=== PATIENT | female | born 1955 | race Caucasian/White ===

== ENCOUNTER 2019-12-22 17:47 | Inpatient (IN) | payer MEDICARE ==
[~2019-12-22] VITALS: Ht 154.9 cm; Wt 69.9 kg
[~2019-12-22 17:47] MED LIST: ACTIVELLA 1 MG1 EACH PO; ATENOLOL50 MG PO; LEVOTHYROXINE75 MCG PO; TRIAMTERENE-HCTZ1 EA PO
[2019-12-22] MEDS ORDERED: MORPHINE SULFATE 2 MG/ML SYR 1ML IV ONE (18:15)
[2019-12-22] MEDS ORDERED: ONDANSETRON HCL INJ 2MG/ML 2ML 2 MG/ML VIAL IV ONE (18:15)
--- NOTE | 2019-12-22 18:25 | Emergency Department Note ---
History of Present Illnes History of Present Illness Chief Complaint: Abdominal Complaints History of Present Illness This is a 64 year old female PRESENTS WITH C/O ABD PAIN AND VOMITING THAT STARTED ABOUT 4 PM. PT HAD FOOT SURGERY 2 DAYS AGO. DENIES DIARRHEA, DENIES FEVER, PAIN IS CONSTANT BUT DOES WAX AND WAIN . Historian: Director Of Admissions/EMS Arrival Mode: [place] Additional Treatment TAILOR'S AIDE: n/a Project Manager Retail Required: No Onset (how long ago): hour(s) (2) Location: ABD Quality: PAIN Radiation: Reports non-radiation Severity: severe Onset quality: sudden Duration (how long): hour(s) (2) Timing of current episode: constant Progression: waxing and waning Chronicity: new Context: Reports recent surgery (FOOT SURGERY); Denies recent illness, Denies recent travel, Denies trauma/injury Relieving factors: none Exacerbating factors: none Associated symptoms: Reports nausea/vomiting Treatments prior to arrival: none Past Medical/Family History Physician Review I have reviewed the patient's past medical and family history. Any updates have been documented here. Past Medical History Recent Fever: No Clinical Suspicion of Infectio: No New/Unexplained Change in Ment: No Past Medical History: Hypertension, Hypothyroidism, Hyperlipedemia Past Surgical History: Appendectomy Other Surgery: left foot Social History Smoking Cessation: Never Smoker Alcohol Use: None Any Illegal Drug Use: No Family History Family history of heart diseas: No Other Last Tetanus: UNK Review of Systems Review of Systems Constitutional: Reports no symptoms EENTM: Reports no symptoms Cardiovascular: Reports no symptoms Respiratory: Reports no symptoms Gastrointestinal: Reports as per HPI Genitourinary: Reports no symptoms Musculoskeletal: Reports no symptoms Integumentary: Reports no symptoms Neurological: Reports no symptoms Psychological: Reports no symptoms Endocrine: Reports no symptoms Hematological/Lymphatic: Reports no symptoms Review of other systems: All other systems negative Physical Exam Related Data Allergies: Coded Allergies: Levofloxacin (Verified Allergy, 05/29/12) Triage Vital Signs Vital Signs Date Time Temp Pulse Resp B/P (MAP) Pulse Ox O2 Delivery O2 Flow Rate FiO2 12/22/19 18:05 97.6 50 16 177/82 100 Room Air Vital signs reviewed: Yes Physical Exam CONSTITUTIONAL Constitutional: Present well-developed, Present well-nourished, Present distressed (MILD) HENT HENT: Present normocephalic, Present atraumatic, Present oropharynx clear/moist, Present nose normal HENT L/R: Present left ext ear normal, Present right ext ear normal EYES Eyes: Reports PERRL, Reports conjunctivae normal NECK Neck: Present ROM normal PULMONARY Pulmonary: Present effort normal, Present breath sounds normal CARDIOVASCULAR Cardiovascular: Present regular rhythm, Present heart sounds normal, Present capillary refill normal, Present bradycardia (RATE 50) GASTROINTESTINAL Abdominal: Present soft, Present bowel sounds normal, Present tender (MODERATE TENDERENESS BILATERAL LOWER ABD AND PERIUMBILICAL) GENITOURINARY Genitourinary: Present exam deferred SKIN Skin: Present warm, Present dry MUSCULOSKELETAL Musculoskeletal: Present ROM normal, Present other (LEFT LOWER EXTREMITY IN ORTHO BOOT, SURGICAL DRESSING IN PLACE) NEUROLOGICAL Neurological: Present alert, Present oriented x 3, Present no gross motor or sensory deficits PSYCHOLOGICAL Psychological: Present mood/affect normal, Present judgement normal Results Laboratory Laboratory Laboratory Tests Test 12/22/19 18:20 White Blood Count 9.87 x10e3/uL (4.8-10.8) Red Blood Count 4.36 x10e6/uL (3.6-5.1) Hemoglobin 13.3 g/dL (12.0-16.0) Hematocrit 41.7 % (34.2-44.1) Mean Corpuscular Volume 95.6 fL (81-99) Mean Corpuscular Hemoglobin 30.5 pg (28-32) Mean Corpuscular Hemoglobin Concent 31.9 g/dL (31-35) Red Cell Distribution Width 13.8 % (11.7-14.4) Platelet Count 279 x10e3/uL (140-360) Neutrophils (%) (Auto) 79.0 % (38.7-80.0) Lymphocytes (%) (Auto) 15.9 % (18.0-39.1) Monocytes (%) (Auto) 0.9 % (4.4-11.3) Eosinophils (%) (Auto) 3.3 % (0.0-6.0) Basophils (%) (Auto) 0.6 % (0.0-1.0) Neutrophils # (Auto) 7.8 (2.1-6.9) Lymphocytes # (Auto) 1.6 (1.0-3.2) Monocytes # (Auto) 0.1 (0.2-0.8) Eosinophils # (Auto) 0.3 (0.0-0.4) Basophils # (Auto) 0.1 (0.0-0.1) Absolute Immature Granulocyte (auto 0.03 x10e3/uL (0-0.1) Sodium Level 142 mmol/L (136-145) Potassium Level 2.9 mmol/L (3.5-5.1) Chloride Level 103 mmol/L (98-107) Carbon Dioxide Level 27 mmol/L (22-29) Anion Gap 14.9 mmol/L (8-16) Blood Urea Nitrogen 19 mg/dL (7-26) Creatinine 1.06 mg/dL (0.57-1.11) Estimat Glomerular Filtration Rate 52 ML/MIN (60-) BUN/Creatinine Ratio 18 (6-25) Glucose Level 141 mg/dL (74-118) Calcium Level 10.0 mg/dL (8.4-10.2) Total Bilirubin 0.3 mg/dL (0.2-1.2) Aspartate Amino Transf (AST/SGOT) 25 IU/L (5-34) Alanine Aminotransferase (ALT/SGPT) 18 IU/L (0-55) Alkaline Phosphatase 75 IU/L (40-150) Creatine Kinase 139 IU/L (29-168) Creatine Kinase MB 2.00 ng/mL (0-5.0) Troponin I < 0.001 ng/mL (0-0.300) Total Protein 7.1 g/dL (6.5-8.1) Albumin 4.0 g/dL (3.5-5.0) Globulin 3.1 g/dL (2.3-3.5) Albumin/Globulin Ratio 1.3 (0.8-2.0) Amylase Level 172 U/L (25-125) Lipase 28 U/L (8-78) Lab results reviewed: Yes Imaging Imaging results reviewed: Yes Impressions Procedure: [id number] CT/CT ABDOMEN/PELVIS W Exam Date: 12/22/19 Exam Time: 1929 REPORT STATUS: Signed EXAM: CT Abdomen and Pelvis WITH contrast INDICATION: ^ABD PAIN ^Y COMPARISON: CT abdomen/pelvis 05/29/2012 TECHNIQUE: Abdomen and pelvis were scanned utilizing a multidetector helical scanner from the lung base to the pubic symphysis after administration of IV contrast. Coronal and sagittal reformations were obtained. Routine protocol was performed. Scan was performed when during portal venous phase. IV CONTRAST: 100 mL of Isovue 370 ORAL CONTRAST: None COMPLICATIONS: None RADIATION DOSE: Total DLP: 402.35 mGy*cm Estimated effective dose: (DLP x 0.015 x size factor) mSv CTDIvol has been reviewed. It is below the limits set by the Radiation Protocol Committee (RPC). Dose modulation, iterative reconstruction, and/or weight based adjustment of the mA/kV was utilized to reduce the radiation dose to as low as reasonably achievable. FINDINGS: LINES and TUBES: None. LOWER THORAX: Subsegmental atelectasis in the dependent lung bases. Visualized portions of inferior mediastinum are unremarkable. HEPATOBILIARY: Liver is normal in size and attenuation. No focal hepatic lesions. No biliary ductal dilation. GALLBLADDER: No radio-opaque stones or sludge. No wall thickening. SPLEEN: No splenomegaly. PANCREAS: No focal masses or ductal dilatation. ADRENALS: No adrenal nodules KIDNEYS/URETERS: Kidneys enhance symmetrically. No hydronephrosis. No cystic or solid mass lesions. No stones. GI TRACT: Diffusely dilated fluid-filled colon extending from the cecum to the sigmoid colon with associated mild mucosal enhancement. Colon gradually tapers to normal caliber with formed stool in the rectum and colon. Distal ileum is also fluid-filled however not significantly dilated. Remaining portions of small bowel are completely decompressed. Appendix is not definitively visualized. PELVIC ORGANS/BLADDER: Uterus is unremarkable. Bilateral adnexa are unremarkable. Urinary bladder is unremarkable. LYMPH NODES: No lymphadenopathy. VESSELS: Unremarkable. PERITONEUM / RETROPERITONEUM: No free air or fluid. BONES: No acute osseous abnormality. Moderate multilevel degenerative changes of the lumbar spine. SOFT TISSUES: Unremarkable. IMPRESSION: 1. Diffusely dilated and fluid-filled colon with mild mucosal enhancement, concerning for colitis. Moderate amount of formed stool within the sigmoid colon and rectum. 2. Small bowel is diffusely decompressed. 3. Appendix is not definitively visualized. Signed by: Dr. Solitario Blanco M.D. on 12/22/2019 8:35 PM Dictated By: SOLITARIO BLANCO MD 34 Transcribed By: BAN on 12/22/192034 COPY TO: ELISSA SEBASTIAN MD~ Procedures 12 Lead ECG Interpretation ECG Interpretation : ECG: ECG 1 Project Manager Retail: Interpreted by ED physician Date: Dec 22, 2019 Time: 18:50 Rhythm: sinus bradycardia Rate: bradycardia BPM: 53 QRS axis: normal ST segments normal: Yes T waves normal: No (NONSECIFIC CHANGES) Other findings: no other findings Clinical Impression: abnormal ECG Assessment & Plan Medical Decision Making MDM PT WITH ABD PAIN CBC, CMP, AMYLASE, LIPASE, CT ABD/PELVIS, EKG, CARDIAC ENZYMES ORDERED TO EVAL FOR PANCREATITIS, ELEVATED LFT'S,UTI, ILEUS, SBO, COLITIS, DIVERTICULITIS MORPHINE 4 MG IV ORDERED ZOFRAN 4 MG IV ORDERED I SPOKE WITH DR BANUELOS AND DR Marybel HOOVER, ADMIT INPATIENT Assessment & Plan Final Impression: (1) Colitis (2) Hypokalemia Depart Disposition: ADMITTED Last Vital Signs Date Time Temp Pulse Resp B/P (MAP) Pulse Ox O2 Delivery O2 Flow Rate FiO2 12/22/19 18:05 97.6 50 16 177/82 100 Room Air Home Meds Reported Medications Estradiol/Noreth Ac (ACTIVELLA 1 MG-0.5 MG TABLET) 1 Each Tablet, 1 TAB PO DAILY 05/29/12 Levothyroxine Sodium (LEVOTHYROXINE SODIUM) 75 Mcg Tablet, 75 MCG PO DAILY 05/29/12 Atenolol (ATENOLOL) 50 Mg Tablet, 25 MG PO BID 05/29/12 Triamterene/Hctz (TRIAMTERENE-HCTZ 37.5-25 MG TB) 1 Ea Tab, 1 TAB PO DAILY 05/29/12 Medications in the ED Morphine Sulfate 4 mg NOW STAT IV ; Start 12/22/19 at 18:15; Stop 12/22/19 at 18:16; Status UNV Ondansetron HCl 4 mg NOW STAT IV ; Start 12/22/19 at 18:15; Stop 12/22/19 at 18:16; Status UNV Sodium Chloride 1,000 ml @ 100 mls/hr Q10H IV ; Start 12/22/19 at 18:15; Stop 01/21/20 at 18:14; Status UNV ELISSA SEBASTIAN MD Dec 22, 2019 18:25
[2019-12-22 18:36] LABS: BASOPHILS # (AUTO) 0.1 (0.0-0.1); BASOPHILS % 0.6 % (0.0-1.0); EOSINOPHILS # (AUTO) 0.3 (0.0-0.4); EOSINOPHILS % 3.3 % (0.0-6.0); HEMATOCRIT 41.7 % (34.2-44.1); HEMOGLOBIN 13.3 g/dL (12.0-16.0); LYMPHOCYTES # (AUTO) 1.6 (1.0-3.2); LYMPHOCYTES % 15.9 % (18.0-39.1); MEAN CORPUSCULAR HEMOGLOBIN 30.5 pg (28-32); MEAN CORPUSCULAR HGB CONC 31.9 g/dL (31-35); MEAN CORPUSCULAR VOLUME 95.6 fL (81-99); MONOCYTES # (AUTO) 0.1 (0.2-0.8); MONOCYTES % 0.9 % (4.4-11.3); NEUTROPHILS # (AUTO) 7.8 (2.1-6.9); PLATELET COUNT 279 x10e3/uL (140-360); RED BLOOD COUNT 4.36 x10e6/uL (3.6-5.1); RED CELL DISTRIBUTION WIDTH 13.8 % (11.7-14.4)
[2019-12-22] MEDS: SODIUM CHLORIDE 0.9% 1000ML 1,000 ML IV SCH (18:45)
[2019-12-22 19:03] LABS: ALANINE AMINOTRANSFERASE 18 IU/L (0-55); ALBUMIN/GLOBULIN RATIO 1.3 (0.8-2.0); ALKALINE PHOSPHATASE 75 IU/L (40-150); ANION GAP 14.9 mmol/L (8-16); BLOOD UREA NITROGEN 19 mg/dL (7-26); BUN/CREATININE RATIO 18 (6-25); CARBON DIOXIDE 27 mmol/L (22-29); CHLORIDE 103 mmol/L (98-107); CREATINE KINASE 139 IU/L (29-168); CREATININE, SERUM 1.06 mg/dL (0.57-1.11); EST GLOMERULAR FILTRATION RATE 52 ML/MIN (60-); GLUCOSE 141 mg/dL (74-118); SODIUM 142 mmol/L (136-145)
[2019-12-22 19:04] LABS: AMYLASE 172 U/L (25-125); LIPASE 28 U/L (8-78)
--- NOTE | 2019-12-22 19:10 | NUR ---
ekg done and family at side
[2019-12-22 19:16] LABS: POTASSIUM 2.9 mmol/L (3.5-5.1)
[2019-12-22] MEDS ORDERED: KCL 20MEQ/.9 SOD CHL 1,000 ML IV ONE (19:30)
[2019-12-22] MEDS ORDERED: HYDROMORPHONE 1MG/1ML INJ IV STA ×2 (20:18→20:20)
--- NOTE | 2019-12-22 20:38 | Diagnostic Imaging Report ---
EXAM: CT Abdomen and Pelvis WITH contrast INDICATION: ^ABD PAIN ^Y COMPARISON: CT abdomen/pelvis 05/29/2012 TECHNIQUE: Abdomen and pelvis were scanned utilizing a multidetector helical scanner from the lung base to the pubic symphysis after administration of IV contrast. Coronal and sagittal reformations were obtained. Routine protocol was performed. Scan was performed when during portal venous phase. IV CONTRAST: 100 mL of Isovue 370 ORAL CONTRAST: None COMPLICATIONS: None RADIATION DOSE: Total DLP: 402.35 mGy*cm Estimated effective dose: (DLP x 0.015 x size factor) mSv CTDIvol has been reviewed. It is below the limits set by the Radiation Protocol Committee (RPC). Dose modulation, iterative reconstruction, and/or weight based adjustment of the mA/kV was utilized to reduce the radiation dose to as low as reasonably achievable. FINDINGS: LINES and TUBES: None. LOWER THORAX: Subsegmental atelectasis in the dependent lung bases. Visualized portions of inferior mediastinum are unremarkable. HEPATOBILIARY: Liver is normal in size and attenuation. No focal hepatic lesions. No biliary ductal dilation. GALLBLADDER: No radio-opaque stones or sludge. No wall thickening. SPLEEN: No splenomegaly. PANCREAS: No focal masses or ductal dilatation. ADRENALS: No adrenal nodules KIDNEYS/URETERS: Kidneys enhance symmetrically. No hydronephrosis. No cystic or solid mass lesions. No stones. GI TRACT: Diffusely dilated fluid-filled colon extending from the cecum to the sigmoid colon with associated mild mucosal enhancement. Colon gradually tapers to normal caliber with formed stool in the rectum and colon. Distal ileum is also fluid-filled however not significantly dilated. Remaining portions of small bowel are completely decompressed. Appendix is not definitively visualized. PELVIC ORGANS/BLADDER: Uterus is unremarkable. Bilateral adnexa are unremarkable. Urinary bladder is unremarkable. LYMPH NODES: No lymphadenopathy. VESSELS: Unremarkable. PERITONEUM / RETROPERITONEUM: No free air or fluid. BONES: No acute osseous abnormality. Moderate multilevel degenerative changes of the lumbar spine. SOFT TISSUES: Unremarkable. IMPRESSION: 1. Diffusely dilated and fluid-filled colon with mild mucosal enhancement, concerning for colitis. Moderate amount of formed stool within the sigmoid colon and rectum. 2. Small bowel is diffusely decompressed. 3. Appendix is not definitively visualized. Signed by: Dr. Kvng Blanco M.D. on 12/22/2019 8:35 PM
[2019-12-22] MEDS ORDERED: SODIUM CHLORIDE 0.9% 50ML 50 ML ONE (20:41)
[2019-12-22] MEDS ORDERED: IOPAMIDOL 370 MG/ML 200 ML INFUS..BTL INJ ONE (20:41)
[2019-12-22] MEDS ORDERED: CEFOXITIN 1GM/0.9% NS 50ML ML IV SCH (22:00)
[2019-12-22] MEDS ORDERED: CEFOXITIN 1GM/0.9% NS 50ML 50 ML IV SCH (22:00)
[2019-12-22] MEDS ORDERED: SIMVASTATIN40 MG PO (22:47)
[2019-12-22 22:50] LABS: BILIRUBIN,URINE NEGATIVE (NEGATIVE); CLARITY,URINE CLEAR (CLEAR); COLOR,URINE YELLOW (YELLOW); KETONES,URINE NEGATIVE (NEGATIVE); LEUKOCYTE ESTERASE ,URINE NEGATIVE (NEGATIVE); NITRITE,URINE NEGATIVE (NEGATIVE); PROTEIN,URINE DIPSTICK NEGATIVE (NEGATIVE); URINE UROBILINOGEN 0.2 mg/dL (0.2 - 1)
[2019-12-22] MEDS ORDERED: HYDROCHLOROTH12.5 MG PO (22:55)
[2019-12-22] MEDS ORDERED: LISINOPRIL10 MG PO (22:55)
[2019-12-22 22:58] LABS: BACTERIA,URINE FEW /HPF; EPITHELIAL CELLS,URINE MODERATE /LPF; RBC,URINE 0-5 /HPF (0-5); WBC,URINE (MAN) 0-5 /HPF (0-5)
[2019-12-22 23:06] VITALS: BP 158/88
[2019-12-22 23:26] VITALS: BP 158/88
[2019-12-22 23:29] VITALS: BP 158/88
[2019-12-22] MEDS: METRONIDAZOLE 500MG/NS 100ML IV SCH (23:43)
[2019-12-23] VITALS (7 sets, daily range): BP systolic 116–142; BP diastolic 69–80
[2019-12-23] MEDS ORDERED: BISACODYL 10 MG SUPP PR ONE
[2019-12-23] MEDS: HYDROMORPHONE 1MG/1ML INJ IV PRN ×5 (00:40→23:48)
[2019-12-23] MEDS: ONDANSETRON HCL INJ 2MG/ML 2ML 2 MG/ML VIAL IV PRN ×6 (00:40→23:48)
[2019-12-23] MEDS: SODIUM CHLORIDE 0.9% 1000ML 1,000 ML IV SCH ×3 (01:22→23:49)
[2019-12-23] MEDS ORDERED: SOD PHOSPHATE/SOD BIPHOSPHATE ENEMA 132 ML BTL PR ONE (01:30)
--- NOTE | 2019-12-23 02:54 | NUR ---
Pt had 3 large BMs after anema.
[2019-12-23] MEDS ORDERED: POTASSIUM CHLORIDE 20 MEQ TAB CR PO ONE ×2 (03:15→04:20)
[2019-12-23] MEDS: METRONIDAZOLE 500MG/NS 100ML IV SCH ×3 (05:21→19:54)
[2019-12-23 06:19] LABS: BASOPHILS % 0.3 % (0.0-1.0); HEMATOCRIT 46.5 % (34.2-44.1); HEMOGLOBIN 14.6 g/dL (12.0-16.0); LYMPHOCYTES # (AUTO) 0.2 (1.0-3.2); LYMPHOCYTES % 1.8 % (18.0-39.1); MEAN CORPUSCULAR HEMOGLOBIN 30.2 pg (28-32); MEAN CORPUSCULAR HGB CONC 31.4 g/dL (31-35); MEAN CORPUSCULAR VOLUME 96.3 fL (81-99); MONOCYTES # (AUTO) 0.5 (0.2-0.8); NEUTROPHILS # (AUTO) 9.4 (2.1-6.9); NEUTROPHILS % 92.8 % (38.7-80.0); PLATELET COUNT 272 x10e3/uL (140-360); RED BLOOD COUNT 4.83 x10e6/uL (3.6-5.1); RED CELL DISTRIBUTION WIDTH 14.2 % (11.7-14.4)
[2019-12-23 06:39] LABS: ALANINE AMINOTRANSFERASE 22 IU/L (0-55); ALBUMIN 3.3 g/dL (3.5-5.0); ALBUMIN/GLOBULIN RATIO 1.1 (0.8-2.0); ALKALINE PHOSPHATASE 90 IU/L (40-150); ANION GAP 14.6 mmol/L (8-16); BLOOD UREA NITROGEN 20 mg/dL (7-26); BUN/CREATININE RATIO 22 (6-25); CARBON DIOXIDE 23 mmol/L (22-29); CHLORIDE 110 mmol/L (98-107); CREATININE, SERUM 0.92 mg/dL (0.57-1.11); EST GLOMERULAR FILTRATION RATE > 60 ML/MIN (60-); GLUCOSE 180 mg/dL (74-118); POTASSIUM 3.6 mmol/L (3.5-5.1); SODIUM 144 mmol/L (136-145)
--- NOTE | 2019-12-23 07:30 | NUR ---
RECEIVED PATIENT IN BED. RESPIRATION EVEN AND BREATHING UNLABORED. TELE APPLIED. NO C/O PAIN VERBALIZED AT THIS TIME. CALL LIGHT WITHIN REACH. WILL CONTINUE TO MONITOR.
[2019-12-23] MEDS: CEFOXITIN 1GM/0.9% NS 50ML 50 ML IV SCH ×3 (08:29→23:48)
[2019-12-23 09:01] LABS: BAND NEUTROPHILS % (MANUAL) 1 %; LYMPHOCYTES % (MANUAL) 2 % (19-48); MONOCYTES % (MANUAL) 4 % (3.4-9.0); NEUTROPHILS % (MANUAL) 93 % (40-74); PLATELET ESTIMATE ADEQUATE; PLATELET MORPHOLOGY COMMENT NORMAL; RBC MORPHOLOGY COMMENT NORMAL
--- NOTE | 2019-12-23 10:59 | NUR ---
H&P cc: abdominal pain HPI: 64yoF, PCP , developed abdominal pain, presented to the ED, imaging showed colitis. IV antibiotics started and GI consulted. PMH: HTN, HLD, Hypothyroidism PShx: appendectomy, nasal, meniscus, left heel spur Allergies; see emr FH/SH; ; no cigs meds; see emr ROS: no f/c/s/ORELLANA/cp/SOB//vision changes/skin rash/leg pain v/s revd PE tired appearing anicteric ns1s2 mod bs soft nd; TENDER LOWER ABDOMEn LEFT LEG BOOT skin dry n. affect a&ox3; casper labs/meds revd A/P: 64yoF Acute colitis- antibiotics Constipation-enema; bowel regimen. HypoK- replace and recheck Hypothyroidism- use IV while NPO HTN- hold med HLD- hold med Prop; scd; IV PPI DIspo: GI eval; LOIS BANUELOS MD, PHD.
[2019-12-23 11:24] LABS: CHOL/HDL RATIO 2.1 (3.0-3.6)
[2019-12-23] MEDS ORDERED: LIDOCAINE HCL 2% LOCAL INJ 5 ML SDV VIAL INJ ONE (12:55)
[2019-12-23] MEDS ORDERED: PROPOFOL IV EMULSION 10 MG/ML 20 ML VIAL ONE (12:55)
[2019-12-23] MEDS ORDERED: MIDAZOLAM HCL 2 MG/2 ML VIAL ONE (13:42)
[2019-12-23] MEDS ORDERED: FENTANYL CITRATE/PF 100MCG/2 ML INJ ONE (13:42)
[2019-12-23] MEDS ORDERED: CITRATE OF MAGNESIA 300ML BOTTLE PO NR ×2 (15:45→16:15)
[2019-12-23] MEDS: FAMOTIDINE 20 MG/2 ML VIAL IV SCH (16:16)
[2019-12-23] MEDS ORDERED: ONDANSETRON HCL INJ 2MG/ML 2ML 2 MG/ML VIAL IV NR (16:51)
[2019-12-23] MEDS ORDERED: DOCUSATE SODIUM 100 MG CAP PO SCH (17:00)
--- NOTE | 2019-12-23 18:29 | NUR ---
PATIENT OFF OF THE UNIT BY STRETCHER AT 1628 TO OR. PT IN STABLE CONDITION. TELE APPLIED
--- NOTE | 2019-12-23 19:47 | NUR ---
rc'd patient from OR.
--- NOTE | 2019-12-23 19:54 | NUR ---
BEDSIDE SHIFT REPORT GIVEN TO ONCOMING NURSE. PATIENT OFF OF UNIT FOR COLONOSCOPY AT THIS TIME. TELE APPLIED.
--- NOTE | 2019-12-23 20:10 | NUR ---
new consult called to dr teresa.
--- NOTE | 2019-12-23 20:12 | Operative Report ---
DATE OF PROCEDURE: 12/23/2019 SURGEON: Hugo Dhillon MD PROCEDURE: Colonoscopy with biopsies. INDICATION FOR COLONOSCOPY: Abdominal pain, fecal impaction, abnormal CT scan of abdomen. MEDICATIONS: The patient was done under MAC, please see anesthesiologist's note. PROCEDURE IN DETAIL: With the patient in left lateral decubitus position, a flexible fiberoptic Olympus colonoscope was inserted into the rectum with ease and advanced all the way to the distal ascending colon. The scope was then withdrawn slowly. Mucosa overlying the distal half of the transverse colon was diffusely ulcerated along with the mucosa overlying the descending and the proximal half of the sigmoid colon. Random biopsies were obtained. The rest of the sigmoid colon was spared as well as the ascending colon and the proximal half of the transverse colon. The rectum was ulcerated, but most likely this is due to pressure necrosis from the patient's fecal impaction. The scope was then retroflexed into the distal rectum. Small internal hemorrhoids were noted, none of which was actively bleeding. The scope was then straightened out, it was subsequently withdrawn after securing an adequate stool specimen that was sent for the appropriate stool studies. The patient tolerated the procedure well. IMPRESSION: 1. Colonoscopy to distal ascending colon. Colon diffusely ulcerated, primarily involving distal half of transverse, descending colon and proximal sigmoid colon. Biopsies were obtained. There was sparing of the ascending and the proximal half of the transverse colon. 2. 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 3. Internal hemorrhoids, none actively bleeding. PLAN: Follow up histology. Follow up stool studies. Continue IV antibiotics. We will need a repeat colonoscopy in three months to document healing. Hugo Dhillon MD [facility] [place] /[id number] cc: Philip Beaver MD
--- NOTE | 2019-12-23 20:19 | NUR ---
small amount of bright red blood at anus, cleaned patient will continue to monitor s/p colonoscopy.
--- NOTE | 2019-12-23 20:21 | NUR ---
spoke to dr teresa, no new orders.
[2019-12-23] MEDS ORDERED: METOCLOPRAMIDE HCL 10 MG/2ML VIAL IV ONE (23:30)
[2019-12-24] VITALS (8 sets, daily range): BP systolic 123–184; BP diastolic 57–89
[2019-12-24] MEDS: METRONIDAZOLE 500MG/NS 100ML IV SCH ×4 (00:30→17:45)
[2019-12-24] MEDS: METOCLOPRAMIDE HCL 10 MG/2ML VIAL IV SCH ×3 (05:46→17:42)
--- NOTE | 2019-12-24 07:00 | NUR ---
PATIENT IS AWAKE, ALERT, AND IN STABLE CONDITION WITH NO S/S OF RESPIRATORY DISTRESS. PATIENT DENIES PAIN AT THIS TIME. TELEMETRY APPLIED. CALL LIGHT IS WITHIN REACH, PATIENT INSTRUCTED TO CALL FOR ASSISTANCE NEEDED.
[2019-12-24 07:14] LABS: WBC,FECAL (FECAL LACTOFERRIN) POSITIVE (NEGATIVE)
--- NOTE | 2019-12-24 07:17 | NUR ---
IM- progress note O/N see below ROS: no f/c/s/ORELLANA/cp/SOB//vision changes/skin rash/leg pain v/s revd PE tired appearing anicteric ns1s2 mod bs soft nd; TENDER LOWER ABDOMEn LEFT LEG BOOT skin dry n. affect a&ox3; casper labs/meds revd A/P: 64yoF Acute colitis- antibiotics Constipation-enema; bowel regimen. HypoK- replace and recheck Hypothyroidism- use IV while NPO HTN- hold med HLD- hold med Prop; scd; IV PPI DIspo: GI eval; 12-24-19 Ischemic Colitis- continue flagyl/ceftin; monitor; control BP with amlodipine, which may act to relax vascular smooth muscles in inferior mesenteric artery. LOIS BANUELOS MD, PHD.
[2019-12-24] MEDS: CEFOXITIN 1GM/0.9% NS 50ML 50 ML IV SCH ×3 (07:42→23:45)
[2019-12-24] MEDS: FAMOTIDINE 20 MG/2 ML VIAL IV SCH ×2 (07:42→17:42)
[2019-12-24] MEDS: AMLODIPINE BESYLATE 10 MG TAB PO SCH ×2 (07:42→09:00)
[2019-12-24] MEDS ORDERED: SENNOSIDES 8.6 MG TAB PO SCH (09:00)
[2019-12-24] MEDS: LEVOTHYROXINE SODIUM 100 MCG/VIAL IV SCH (10:41)
--- NOTE | 2019-12-24 10:50 | Consultation ---
DATE OF CONSULTATION: 12/24/2019 CHIEF COMPLAINT: Abdominal pain. HISTORY OF PRESENT ILLNESS: The patient is a 64-year-old female with a 3-day history of cramping abdominal pain, intermittent nausea, and vomiting. The patient also has a bloody diarrhea. She had left foot surgery on Wednesday without a complication. The patient had one previous episode of colitis a year ago, which was treated non operatively. PAST MEDICAL HISTORY: Significant for hypertension, hyperlipidemia, hypothyroidism. PAST SURGICAL HISTORY: Positive for appendectomy, knee and foot surgery and nasal surgery. ALLERGIES: SHE HAS ALLERGIC REACTION TO LEVAQUIN. SOCIAL HABITS: She does not smoke, but drink. REVIEW OF SYSTEMS: No chest pain, shortness of breath, cough, or fevers. PHYSICAL EXAMINATION: VITAL SIGNS: Stable, afebrile. She is awake, alert, in moderate discomfort. HEENT: Sclerae nonicteric. NECK: Supple. LUNGS: Clear. HEART: Regular rate and rhythm. ABDOMEN: Soft with some mild guarding in the left lower abdomen without any rebound. There is hygj-sa-wyzrymba distention of the abdomen. EXTREMITIES: No cyanosis, edema. LABORATORY DATA: White cell count 10, hemoglobin of 14, creatinine 0.9. CT scan showing inflammation of the mucosa of the colon without obstruction. Colonoscopy revealed ulcerative lesions in the distal transverse colon to the rectum. ASSESSMENT: Abdominal pain and diarrhea, inpatient with history of colitis. Colitis seemed to be involving the distal half of the colon. Some improvement since admission. PLAN: Continue IV resuscitation. We will keep n.p.o. until resolution of symptoms. We will follow. Dino Tamayo MD [facility]/MODL /[id number]
[2019-12-24 14:32] LABS: C DIFFICILE TOXIN A&B AMP PROB NEGATIVE (NEGATIVE)
[2019-12-24] MEDS: SODIUM CHLORIDE 0.9% 1000ML 1,000 ML IV SCH ×2 (19:00→19:07)
--- NOTE | 2019-12-24 19:13 | NUR ---
PATIENT IS IN STABLE CONDITION WITH NO S/S OF RESPIRATORY DISTRESS. NO PAIN VOICED. TELEMETRY APPLIED. IV FLUIDS INFUSING. DIAPER APPLIED. CALL LIGHT IS WITHIN REACH, PATIENT INSTRUCTED TO CALL FOR ASSISTANCE NEEDED. REPORT GIVEN TO ONCOMING NURSE.
--- NOTE | 2019-12-24 19:24 | NUR ---
CALL PLACED OUT TO DR. CATALAN REGARDING PATIENT'S DIET AND HER RECEIVING AN OKAY FOR ICE CHIPS PER DR. HOOVER. AWAITING CALLBACK.
[2019-12-25] VITALS (7 sets, daily range): BP systolic 122–168; BP diastolic 70–94
[2019-12-25] MEDS: METRONIDAZOLE 500MG/NS 100ML IV SCH ×4 (00:34→18:00)
[2019-12-25] MEDS: METOCLOPRAMIDE HCL 10 MG/2ML VIAL IV SCH ×5 (00:34→23:50)
[2019-12-25] MEDS: SODIUM CHLORIDE 0.9% 1000ML 1,000 ML IV SCH ×2 (05:34→23:50)
[2019-12-25 05:48] LABS: BASOPHILS # (AUTO) 0.1 (0.0-0.1); BASOPHILS % 0.6 % (0.0-1.0); EOSINOPHILS # (AUTO) 0.2 (0.0-0.4); EOSINOPHILS % 1.6 % (0.0-6.0); HEMATOCRIT 33.7 % (34.2-44.1); HEMOGLOBIN 11.1 g/dL (12.0-16.0); LYMPHOCYTES # (AUTO) 0.9 (1.0-3.2); LYMPHOCYTES % 8.9 % (18.0-39.1); MEAN CORPUSCULAR HEMOGLOBIN 31.6 pg (28-32); MEAN CORPUSCULAR HGB CONC 32.9 g/dL (31-35); MONOCYTES # (AUTO) 0.8 (0.2-0.8); MONOCYTES % 7.7 % (4.4-11.3); NEUTROPHILS % 80.8 % (38.7-80.0); PLATELET COUNT 195 x10e3/uL (140-360); RED BLOOD COUNT 3.51 x10e6/uL (3.6-5.1); RED CELL DISTRIBUTION WIDTH 14.2 % (11.7-14.4)
[2019-12-25 06:22] LABS: ALANINE AMINOTRANSFERASE 17 IU/L (0-55); ALBUMIN 2.3 g/dL (3.5-5.0); ALBUMIN/GLOBULIN RATIO 0.9 (0.8-2.0); ALKALINE PHOSPHATASE 61 IU/L (40-150); ANION GAP 11.3 mmol/L (8-16); BLOOD UREA NITROGEN 14 mg/dL (7-26); BUN/CREATININE RATIO 21 (6-25); CALCIUM 7.9 mg/dL (8.4-10.2); CARBON DIOXIDE 20 mmol/L (22-29); CHLORIDE 113 mmol/L (98-107); CREATININE, SERUM 0.67 mg/dL (0.57-1.11); EST GLOMERULAR FILTRATION RATE > 60 ML/MIN (60-); GLUCOSE 73 mg/dL (74-118); POTASSIUM 3.3 mmol/L (3.5-5.1); SODIUM 141 mmol/L (136-145)
--- NOTE | 2019-12-25 06:58 | NUR ---
IM- progress note O/N see below ROS: no f/c/s/ORELLANA/cp/SOB//vision changes/skin rash/leg pain v/s revd PE tired appearing anicteric ns1s2 mod bs soft nd; TENDER LOWER ABDOMEn LEFT LEG BOOT skin dry n. affect a&ox3; casper labs/meds revd A/P: 64yoF Acute colitis- antibiotics Constipation-enema; bowel regimen. HypoK- replace and recheck Hypothyroidism- use IV while NPO HTN- hold med HLD- hold med Prop; scd; IV PPI DIspo: GI eval; 12-24-19 Ischemic Colitis- continue flagyl/ceftin; monitor; control BP with amlodipine, which may act to relax vascular smooth muscles in inferior mesenteric artery. 11-2 Hypokalemia- Replace K; getting ice chips only. LOIS BANUELOS MD, PHD.
[2019-12-25] MEDS ORDERED: POTASSIUM CHLORIDE 20 MEQ TAB CR PO ONE (07:30)
[2019-12-25] MEDS ORDERED: POTASSIUM CHLORIDE 20MEQ/100ML 100 ML IV ONE (08:00)
[2019-12-25] MEDS ORDERED: METOPROLOL TARTRATE INJ 1 MG/ML VIAL IV PRN (08:00)
[2019-12-25] MEDS: FAMOTIDINE 20 MG/2 ML VIAL IV SCH ×2 (09:30→17:00)
[2019-12-25] MEDS: LEVOTHYROXINE SODIUM 100 MCG/VIAL IV SCH (09:30)
[2019-12-25] MEDS: CEFOXITIN 1GM/0.9% NS 50ML 50 ML IV SCH ×3 (09:30→23:50)
--- NOTE | 2019-12-25 15:00 | NUR ---
3rd call to Dr. Beaver to notify him patient has been unable to tolerate IV potassium and has poor IV access. Orders received for midline placement.
[2019-12-26] VITALS (8 sets, daily range): BP systolic 109–153; BP diastolic 61–83
[2019-12-26] MEDS: METRONIDAZOLE 500MG/NS 100ML IV SCH ×4 (00:35→17:38)
[2019-12-26] MEDS: SODIUM CHLORIDE 0.9% 1000ML 1,000 ML IV SCH ×3 (02:15→23:37)
[2019-12-26] MEDS: METOCLOPRAMIDE HCL 10 MG/2ML VIAL IV SCH ×4 (05:32→23:37)
--- NOTE | 2019-12-26 06:16 | NUR ---
IM- progress note O/N see below ROS: no f/c/s/ORELLANA/cp/SOB//vision changes/skin rash/leg pain v/s revd PE tired appearing anicteric ns1s2 mod bs soft nd; TENDER LOWER ABDOMEn LEFT LEG BOOT skin dry n. affect a&ox3; casper labs/meds revd A/P: 64yoF Acute colitis- antibiotics Constipation-enema; bowel regimen. HypoK- replace and recheck Hypothyroidism- use IV while NPO HTN- hold med HLD- hold med Prop; scd; IV PPI DIspo: GI eval; 12-24-19 Ischemic Colitis- continue flagyl/ceftin; monitor; control BP with amlodipine, which may act to relax vascular smooth muscles in inferior mesenteric artery. 11-2 Hypokalemia- Replace K; getting ice chips only. 11-3 check electrolytes LOIS BANUELOS MD, PHD.
[2019-12-26 07:22] LABS: ANION GAP 11.3 mmol/L (8-16); BLOOD UREA NITROGEN 6 mg/dL (7-26); BUN/CREATININE RATIO 9 (6-25); CALCIUM 7.9 mg/dL (8.4-10.2); CARBON DIOXIDE 23 mmol/L (22-29); CHLORIDE 109 mmol/L (98-107); CREATININE, SERUM 0.65 mg/dL (0.57-1.11); EST GLOMERULAR FILTRATION RATE > 60 ML/MIN (60-); GLUCOSE 87 mg/dL (74-118); MAGNESIUM 1.7 MG/DL (1.3-2.1); PHOSPHORUS 1.1 MG/DL (2.3-4.7); POTASSIUM 3.3 mmol/L (3.5-5.1); SODIUM 140 mmol/L (136-145)
[2019-12-26] MEDS: LEVOTHYROXINE SODIUM 100 MCG/VIAL IV SCH (08:29)
[2019-12-26] MEDS: CEFOXITIN 1GM/0.9% NS 50ML 50 ML IV SCH ×3 (08:29→23:37)
[2019-12-26] MEDS: FAMOTIDINE 20 MG/2 ML VIAL IV SCH ×2 (08:29→17:38)
--- NOTE | 2019-12-26 09:22 | Diagnostic Imaging Report ---
OR Fluoroscopy: IMPRESSION: Fluoroscopy service provided in the OR. Interpretation not requested. Signed by: Anthony Abdalla MD on 12/26/2019 9:18 AM
[2019-12-26] MEDS: ONDANSETRON HCL INJ 2MG/ML 2ML 2 MG/ML VIAL IV PRN (10:30)
[2019-12-26] MEDS ORDERED: DIPHENOXYLATE/ATROPINE TAB PO ONE (12:15)
[2019-12-27] VITALS: BP 109/57
[2019-12-27] MEDS: METRONIDAZOLE 500MG/NS 100ML IV SCH ×3 (00:30→12:00)
[2019-12-27] MEDS ORDERED: POTASSIUM CHLORIDE 20 MEQ TAB CR PO STA (01:11)
[2019-12-27] MEDS ORDERED: POTASSIUM CHLORIDE 20 MEQ TAB CR PO ONE (03:00)
[2019-12-27 04:00] VITALS: BP 127/69
[2019-12-27] MEDS: METOCLOPRAMIDE HCL 10 MG/2ML VIAL IV SCH ×2 (05:54→12:00)
[2019-12-27 06:51] LABS: ANION GAP 12.6 mmol/L (8-16); BLOOD UREA NITROGEN < 5 mg/dL (7-26); CALCIUM 8.3 mg/dL (8.4-10.2); CARBON DIOXIDE 22 mmol/L (22-29); CHLORIDE 109 mmol/L (98-107); CREATININE, SERUM 0.62 mg/dL (0.57-1.11); EST GLOMERULAR FILTRATION RATE > 60 ML/MIN (60-); GLUCOSE 107 mg/dL (74-118); POTASSIUM 3.6 mmol/L (3.5-5.1); SODIUM 140 mmol/L (136-145)
[2019-12-27 06:53] LABS: BUN/CREATININE RATIO 8 (6-25)
--- NOTE | 2019-12-27 07:10 | NUR ---
RCD PT AT BED PT IS ALERT AND ORIENTED PT RESTING ON BED IV PATENT BED LOW AND LOCKED CALL LIGHT IN REACH
[2019-12-27] MEDS: CEFOXITIN 1GM/0.9% NS 50ML 50 ML IV SCH (07:30)
[2019-12-27 07:31] VITALS: BP 156/72
[2019-12-27] MEDS: SODIUM CHLORIDE 0.9% 1000ML 1,000 ML IV SCH (08:15)
[2019-12-27 08:42] VITALS: BP 156/72
[2019-12-27] MEDS: FAMOTIDINE 20 MG/2 ML VIAL IV SCH (09:00)
[2019-12-27] MEDS: LEVOTHYROXINE SODIUM 100 MCG/VIAL IV SCH (09:00)
--- NOTE | 2019-12-27 09:13 | NUR ---
D/C summary Principal Dx: Acute colitis- antibiotics Constipation-enema; bowel regimen. HypoK- replace and recheck Secondary Dx: Hypothyroidism- use IV while NPO HTN- hold med HLD- hold med Prop; scd; IV PPI DIspo: GI eval; 12-24-19 Ischemic Colitis- continue flagyl/ceftin; monitor; control BP with amlodipine, which may act to relax vascular smooth muscles in inferior mesenteric artery. 11-2 Hypokalemia- Replace K; getting ice chips only. -3 check electrolytes -4 cont care; diet per surgery. d/c home stable f/u pcp 2 days and [facility] 1 week d/c>35mins LOIS BANUELOS MD, PHD.
[2019-12-27] MEDS ORDERED: FLAGYL250 MG PO (10:01)
[2019-12-27] MEDS ORDERED: CEFUROXIME250 MG PO (10:01)
--- NOTE | 2019-12-27 10:05 | NUR ---
Pt unavailable at this time. Will follow up as able. HEMA BOGGS Washing Machine Mechanic Spiritual Care Department O: [phone]
[2019-12-27] MEDS ORDERED: PEPCID20 MG PO (10:27)
--- NOTE | 2019-12-27 10:57 | NUR ---
EDUCATED ABOUT IMM, SIGNED, FILED IN CHART, WITH COPY LEFT WITH FAMILY AT BEDSIDE.
[2019-12-27 11:01] VITALS: BP 138/70
--- NOTE | 2019-12-27 13:00 | NUR ---
PAGED AND NOTIFIED DR BANUELOS THE PT TOLERATING LUNCH GOT THE PERMISSION TO SEND TO HOME
--- NOTE | 2019-12-27 13:45 | NUR ---
DC MIDLINE BY ORDER NO SIGNS OF ANY BLEEDING NOTED
--- NOTE | 2019-12-27 14:12 | NUR ---
PT WENT HOME IN SAFE CONDITION WITH HER DAUGHTER NO SIGNS OF ANY BLEEDING ON THE MIDLINE SITE
--- OUTSIDE RECORDS SUMMARY | 2019-12-28 18:14 | XMS REPORT | Continuity of Care Document ---
Author Author [facility] t Organization [facility] Address [address] [place] [address] Phone Unavailable Care Team Providers Care Ux Developer Name Role Phone LOIS BANUELOS Attphys Unavailable LOIS BANUELOS Admphys Unavailable Problems Condition Name Condition Details Condition Category Status Onset Date Resolution Date Last Treatment Date Treating Clinician Comments Source Hypothyroidism Hypothyroidism Problem Active [facility] Hyperlipidemia Hyperlipidemia Problem Active [facility] Hypertensive disorder Hypertensive Disorder Problem Active [facility] Allergies, Adverse Reactions, Alerts Allergy Name Allergy Type Status Severity Reaction(s) Onset Date Inacti ve Date Treating Clinician Comments Source Levaquin Allergy to substance Active [facility] Social History Smoking Status Start Date Stop Date Source Never Smoker [facility] ractice Medications Ordered Medication Name Filled Medication Name Start Date Stop Da te Current Medication? Ordering Clinician Indication Dosage Frequency Signature (SIG) Comments Components Source ibuprofen 800 mg tablet Take 1 tablet ev rebeca 6-8 hours by oral route as needed for 30 days. ibuprofen 800 mg tablet Take 1 tablet ev rebeca 6-8 hours by oral route as needed for 30 days. No 1 Q7H i buprofen 800 mg tablet Take 1 tablet every 6-8 hours by oral route as needed for 30 days. [facility] lisinopril 10 mg-hydrochlorothiazide 12. 5 mg tablet Take 1 tablet(s) every day by oral route. lisinopril 10 mg-hydrochlorothiazide 12. 5 mg tablet Take 1 tablet(s) every day by oral route. No lisinopril 10 mg- hydrochlorothiazide 12.5 mg tablet Take 1 tablet(s) every day by oral route. [facility] lorazepam 1 mg tablet Take 1 tablet every day by oral route as needed. lorazepam 1 mg tablet Take 1 tablet every day by oral route as needed. No lorazepam 1 mg tablet Take 1 tablet every day by oral route as needed. [facility] simvastatin 40 mg tablet TAKE 1 TABLET DAILY simvastat in 40 mg tablet TAKE 1 TABLET DAILY No simvastatin 40 mg tablet TAKE 1 TABLET DAILY [facility] Synthroid 50 mcg tablet TAKE 1 TABLET BY MOUTH EVERY DAY Synthroid 50 mcg tablet TAKE 1 TABLET BY MOUTH EVERY DAY No Synthroid 50 mcg tablet TAKE 1 TABLET BY MOUTH EVERY DAY [facility] Vital Signs Vital Name Observation Time Observation Value Comments Source BP Diastolic 2019-10-09 00:00:00 71 mm[Hg] [facility] Height 2019-10-09 00:00:00 60.25 [in_i] [facility] BMI (Body Mass Index) 2019-10-09 00:00:00 28.5 kg/m2 [facility] BP Systolic 2019-10-09 00:00:00 153 mm[Hg] [facility] Body Weight 2019-10-09 00:00:00 147.4 [lb_av] [facility] Height 2019-09-22 00:00:00 60.25 [in_i] [facility] Height 2019-09-13 00:00:00 60.25 [in_i] [facility] BP Diastolic 2019-09-07 00:00:00 90 mm[Hg] [facility] Height 2019-09-07 00:00:00 60.25 [in_i] [facility] BMI (Body Mass Index) 2019-09-07 00:00:00 29.6 kg/m2 [facility] BP Systolic 2019-09-07 00:00:00 144 mm[Hg] [facility] Body Weight 2019-09-07 00:00:00 153 [lb_av] [facility] BP Diastolic 2019-01-02 00:00:00 101 mm[Hg] [facility] Height 2019-01-02 00:00:00 60.25 [in_i] [facility] BMI (Body Mass Index) 2019-01-02 00:00:00 29.7 kg/m2 [facility] BP Systolic 2019-01-02 00:00:00 141 mm[Hg] [facility] Body Weight 2019-01-02 00:00:00 153.4 [lb_av] [facility] BP Diastolic 2018-07-28 00:00:00 70 mm[Hg] [facility] Height 2018-07-28 00:00:00 60.25 [in_i] [facility] BMI (Body Mass Index) 2018-07-28 00:00:00 29 kg/m2 [facility] BP Systolic 2018-07-28 00:00:00 128 mm[Hg] [facility] Body Weight 2018-07-28 00:00:00 149.8 [lb_av] [facility] Procedures Procedure Date / Time Performed Performing Clinician [facility] e Appendectomy 1961-02-22 00:00:00 [facility] Encounters Start Date/Time End Date/Time Encounter Type [facility] Encounter ID Source 2019-10-09 00:00:00 2019-10-09 00:00:00 Jessica Mena MD: [address], [address], [place] [address], Ph[address] [facility] ([facility]) [id number] [facility] e 2019-09-22 00:00:00 2019-09-22 00:00:00 Feroz Shen MD: [address], [address], [place] [address], Ph. [facility] ([facility]) [id number] [facility] 2019-09-13 00:00:00 2019-09-13 00:00:00 Feroz Shen MD: [address], [address], [place] [address], Ph. [facility] ([facility]) [id number] [facility] 2019-09-07 00:00:00 2019-09-07 00:00:00 Pantera Underwood DO: [address], [address], [place] [address], Ph. [facility] ([facility]) [id number] [facility] 2019-03-01 00:00:00 2019-03-01 00:00:00 Ary Woods MD: [address] [place] [address], Ph. [facility] - [facility] [id number] [facility] 2019-01-02 00:00:00 2019-01-02 00:00:00 Feroz Shen MD: [address] [place] [address], Ph. [facility] [id number] [facility] 2018-07-28 00:00:00 2018-07-28 00:00:00 Feroz Shen MD: [address] [place] [address], Ph. [facility] [id number] [facility] 2018-07-26 00:00:00 2018-07-26 00:00:00 Feroz Shen MD: [address] [place] [address], Ph. [facility] [id number] [facility] Results Test Description Test Time Test Comments Results Result Comments Source [facility] 2019-12-26 09:18:00 [facility] : 1955 Sex: F [place] [id number] Patient Name: BREANNA MENDOZA MR #: [id number] : 1955 Age/Sex: 64/F Req #: [id number] Adm Physician: LOIS BANUELOS MD Ordered by: LOIS BANUELOS MD Report #: [id number] Location: MED/SURG2 Room/Bed: [facility] Procedure: [id number] IR/MIDLINE PLACEMENT Exam Date: Exam Time: REPORT STATUS: Signed OR Fluoroscopy: IMPRESSION: Fluoroscopy service provided in the OR. Interpretation not requested. Signed by: Anthony Diaz MD on 12/26/2019 9:18 AM Dictated By: ANTHONY DIAZ MD 7 Transcribed By: BAN on 12/26/19917 COPY TO: LOIS BANUELOS MD CT ABDOMEN/PELVIS W 2019-12-22 20:14:00 [facility] : 1955 Sex: F [place] [id number] Patient Name: BREANNA MENDOZA MR #: [id number] : 1955 Age/Sex: 64/F Req #: [id number] Adm Physician: Ordered by: ELISSA SEBASTIAN MD Report #: [id number] Location: Room/Bed: Procedure: [id number] CT/CT ABDOMEN/PELVIS W Exam Date: 12/22/19 Exam Time: 1930 REPORT STATUS: Signed EXAM: CT Abdomen and Pelvis WITH contrast INDICATION: ABD PAIN Y COMPARISON: CT abdomen/pelvis 05/29/2012 TECHNIQUE: Abdomen and pelvis were scanned utilizing a multidetector helical scanner from the lung base to the pubic symphysis after administration of IV contrast. Coronal and sagittal reformations were obtained. Routine protocol was performed. Scan was performed when during portal venous phase. IV CONTRAST: 100 mL of Isovue 370 ORAL CONTRAST: None COMPLICATIONS: None RADIATION DOSE: Total DLP: 402.35 mGy*cm Estimated effective dose: (DLP x 0.015 x size factor) mSv CTDIvol has been reviewed. It is below the limits set by the Radiation Protocol Committee (RPC). Dose modulation, iterative reconstruction, and/or weight based adjustment of the mA/kV was utilized to reduce the radiation dose to as low as reasonably achievable. FINDINGS: LINES and TUBES: None. LOWER THORAX: Subsegmental atelectasis in the dependent lung bases. Visu alized portions of inferior mediastinum are unremarkable. HEPATOBILIARY: Liver is normal in size and attenuation. No focal hepatic lesions. No biliary ductal dilation. GALLBLADDER: No radio-opaque stones or sludge. No wall thickening. SPLEEN: No splenomegaly. PANCREAS: No focal masses or ductal dilatation. ADRENALS: No adrenal nodules KIDNEYS/URETERS: Kidneys enhance symmetrically. No hydronephrosis. No cystic or solid mass lesions. No stones. GI TRACT: Diffusely dilated fluid-filled colon extending from the cecum to the sigmoid colon with associated mild mucosal enhancement. Colon gradually tapers to normal caliber with formed stool in the rectum and colon. Distal ileum is also fluid-filled however not significantly dilated. Remaining portions of small bowel are completely decompressed. Appendix is not definitively visualized. PELVIC ORGANS/BLADDER: Uterus is unremarkable. Bilateral adnexa are unremarkable. Urinary bladder is unremarkable. LYMPH NODES: No lymphadenopathy. VESSELS: Unremarkable. PERITONEUM / RETROPERITONEUM: No free air or fluid. BONES: No acute osseous abnormality. Moderate multilevel degenerative changes of the lumbar spine. SOFT TISSUES: Unremarkable. IMPRESSION: 1. Diffusely dilated and fluid-filled colon with mild mucosal enhancement, concerning for colitis. Moderate amount of formed stool within the sigmoid colon and rectum. 2. Small bowel is diffusely decompressed. 3. Appendix is not definitively visualized. Signed by: Dr. Solitario kang M.D. on 12/22/2019 8:35 PM Dictated By: SOLITARIO GIRON MD 34 Transcribed By: BAN on 12/22/192034 COPY TO: ELISSA SEBASTIAN MD CBC W Auto Differential panel - Blood 2019-09-08 08:27:00 Test Item WBC (test code = WBC) 6.64 x10*3/?L 3.98-10.04 RBC (test code = RBC) 4.37 10*12/L 3.93-5.22 hemoglobin (test code = hemoglobin) 13.30 g/dL 11.20-15.70 hematocrit (test code = hematocrit) 43.0 % 34.1-44.9 MCV (test code = MCV) 98.4 fL 80.0-100.0 MCH (test code = MCH) 30.4 pg 25.6-32.2 MCHC (test code = MCHC) 30.9 g/dL 32.2-35.5 L RDW-SD (test code = RDW-SD) 50.1 fL 36.4-46.3 H platelet count (test code = platelet count) 276.0 k/uL 182.0-369. 0 MPV (test code = MPV) 11.0 fL 7.5-11.5 neut% (test code = neut%) 67.6 % 34.0-71.1 lymph% (test code = lymph%) 19.1 % 19.3-51.7 L mon% (test code = mon%) 7.5 % 4.7-12.5 eos% (test code = eos%) 5.3 % 0.7-5.8 baso% (test code = baso%) 0.5 % 0.1-1.2 neut# (test code = neut#) 4.5 x10*3/?L 1.6-6.1 lymph# (test code = lymph#) 1.3 x10*3/?L 1.2-3.7 mon# (test code = mon#) 0.5 x10*3/?L 0.2-0.9 eos# (test code = eos#) 0.35 x10*3/?L 0.04-0.36 baso# (test code = baso#) 0.03 x10*3/?L 0.01-0.08 [facility] Auto Differential panel - [id number] 08:27:00 * Test Item Value Reference Range Interpretation Comments WBC (test code = WBC) 6.64 x10*3/?L 3.98-10.04 RBC (test code = RBC) 4.37 10*12/L 3.93-5.22 hemoglobin (test code = hemoglobin) 13.30 g/dL 11.20-15.70 hematocrit (test code = hematocrit) 43.0 % 34.1-44.9 MCV (test code = MCV) 98.4 fL 80.0-100.0 MCH (test code = MCH) 30.4 pg 25.6-32.2 MCHC (test code = MCHC) 30.9 g/dL 32.2-35.5 L RDW-SD (test code = RDW-SD) 50.1 fL 36.4-46.3 H platelet count (test code = platelet count) 276.0 k/uL 182.0-369. 0 MPV (test code = MPV) 11.0 fL 7.5-11.5 neut% (test code = neut%) 67.6 % 34.0-71.1 lymph% (test code = lymph%) 19.1 % 19.3-51.7 L mon% (test code = mon%) 7.5 % 4.7-12.5 eos% (test code = eos%) 5.3 % 0.7-5.8 baso% (test code = baso%) 0.5 % 0.1-1.2 neut# (test code = neut#) 4.5 x10*3/?L 1.6-6.1 lymph# (test code = lymph#) 1.3 x10*3/?L 1.2-3.7 mon# (test code = mon#) 0.5 x10*3/?L 0.2-0.9 eos# (test code = eos#) 0.35 x10*3/?L 0.04-0.36 baso# (test code = baso#) 0.03 x10*3/?L 0.01-0.08 [facility] - [facility] or Plasma 2019-09-07 17:50:00* Test Item Value Reference Range Interpretation Comments ALT (test code = ALT) 19 U/L 0-55 AST (test code = AST) 25 U/L 5-34 BUN (test code = BUN) 14.6 mg/dL 9.8-25.0 alk phos (test code = alk phos) 77 unit/L 40-150 glucose (test code = glucose) 93 mg/dL 70-99 albumin (test code = albumin) 4.2 g/dL 3.4-5.1 creatinine (test code = creatinine) 0.82 mg/dL 0.57-1.11 eGFR non- (test code = eGFR non-) > 60 total bilirubin (test code = total bilirubin) 0.7 mg/dL 0.2-1.2 eGFR - (test code = eGFR - ) >60 sodium (test code = sodium) 142 mEq/L 135-145 potassium (test code = potassium) 4.4 mEq/L 3.5-5.3 chloride (test code = chloride) 105 mmol/L 98-110 total protein (test code = total protein) 7.3 g/dL 6.1-8.2 calcium (test code = calcium) 9.8 mg/dL 8.6-10.4 CO2 (test code = CO2) 27.7 mmol/L 20.0-32.0 anion gap (test code = anion gap) 9 calc [facility] - Serum or [id number] 17:50:00* Test Item Value Reference Range Interpretation Comments HDL (test code = HDL) 74 mg/dL triglyceride (test code = triglyceride) 52 mg/dL <150 VLDL (calculated) (test code = VLDL (calculated)) 10 mg/dL cholesterol/HDL ratio (test code = cholesterol/HDL ratio) 2.4 mg/dL non-HDL cholesterol (calculated) (test code = non-HDL cholesterol (calculated)) 103 mg/dL <160 cholesterol (test code = cholesterol) 177 mg/dL <200 Cholesterol in LDL [Mass/volume] in Serum or Plasma (t est code = 2089-1) 93 mg/dL <130 [facility]Units/volume] in Serum or [id number] 17:50:00* Test Item Value Reference Range Interpretation Comments TSH (test code = TSH) 2.500 uIU/mL 0.350-4.940 [facility] - Serum or Plasma 2019-09-07 17:50:00* Test Item Value Reference Range Interpretation Comments ALT (test code = ALT) 19 U/L 0-55 AST (test code = AST) 25 U/L 5-34 BUN (test code = BUN) 14.6 mg/dL 9.8-25.0 alk phos (test code = alk phos) 77 unit/L 40-150 glucose (test code = glucose) 93 mg/dL 70-99 albumin (test code = albumin) 4.2 g/dL 3.4-5.1 creatinine (test code = creatinine) 0.82 mg/dL 0.57-1.11 eGFR non- (test code = eGFR non-) > 60 total bilirubin (test code = total bilirubin) 0.7 mg/dL 0.2-1.2 eGFR - (test code = eGFR - ) >60 sodium (test code = sodium) 142 mEq/L 135-145 potassium (test code = potassium) 4.4 mEq/L 3.5-5.3 chloride (test code = chloride) 105 mmol/L 98-110 total protein (test code = total protein) 7.3 g/dL 6.1-8.2 calcium (test code = calcium) 9.8 mg/dL 8.6-10.4 CO2 (test code = CO2) 27.7 mmol/L 20.0-32.0 anion gap (test code = anion gap) 9 calc [facility] panel - Serum or [id number] 17:50:00* Test Item Value Reference Range Interpretation Comments HDL (test code = HDL) 74 mg/dL triglyceride (test code = triglyceride) 52 mg/dL <150 VLDL (calculated) (test code = VLDL (calculated)) 10 mg/dL cholesterol/HDL ratio (test code = cholesterol/HDL ratio) 2.4 mg/dL non-HDL cholesterol (calculated) (test code = non-HDL cholesterol (calculated)) 103 mg/dL <160 cholesterol (test code = cholesterol) 177 mg/dL <200 Cholesterol in LDL [Mass/volume] in Serum or Plasma (t est code = 2089-1) 93 mg/dL <130 [facility] [Units/volume] in Serum or [id number] 17:50:00* Test Item Value Reference Range Interpretation Comments TSH (test code = TSH) 2.500 uIU/mL 0.350-4.940 [facility] [id number] 10:45:11 - SCR MAMM BILATERAL MICHI CAD DIGITALBILATERAL DIGITAL SCREENING MAMMOGRAM 3D/2D WITH CAD: 02/13/2019CLINICAL: Asymptomatic. Digital breast tomosynthesis was performed in addition to routine CC and MLO views. Current mammographic images were evaluated by either a [employer] M-Vu or a [employer] ImageChecker CAD (computer a ided detection system). Comparison is made to exams dated 01/26/2018 mammogram, 11/25/2016 mammogram, 02/20/2015 mammogram, 04/14/2013 mammogram, and 04/11/2012 m ammogram - [facility] The tissue of both breasts is heterogene ously dense. This may lower the sensitivity of mammography. There are benign ca lcifications in both breasts. No suspicious mass, architectural distortion, mal ignant type calcification, or lymph node abnormality detected. Breast net lead architect ure is stable compared to prior exams.IMPRESSION: BENIGNThere is no mammographic evidence of malignancy. Resume annual screening mammography in one year. Vito Talley M.D. ar/:02/16/2019 10:45:11 copy to: Cheryl arroyo MD, ph: [phone], fax: [phone] Technologist: L[facility]FWletter sent: BIRADS 1-2 Normal Mammogram BI-RADS: 2 Be nignCBC W Auto Differential panel - [id number] 00:00:00* Test Item Value Reference Range Interpretation Comments WBC (test code = WBC) 5.53 x10*3/?L 3.98-10.04 RBC (test code = RBC) 4.00 10*12/L 3.93-5.22 hemoglobin (test code = hemoglobin) 12.20 g/dL 11.20-15.70 hematocrit (test code = hematocrit) 38.3 % 34.1-44.9 MCV (test code = MCV) 95.8 fL 80.0-100.0 MCH (test code = MCH) 30.5 pg 25.6-32.2 MCHC (test code = MCHC) 31.9 g/dL 32.2-35.5 L RDW-SD (test code = RDW-SD) 47.2 fL 36.4-46.3 H platelet count (test code = platelet count) 250.0 k/uL 182.0-369. 0 MPV (test code = MPV) 10.9 fL 7.5-11.5 neut% (test code = neut%) 67.7 % 34.0-71.1 lymph% (test code = lymph%) 18.1 % 19.3-51.7 L mon% (test code = mon%) 9.2 % 4.7-12.5 eos% (test code = eos%) 4.5 % 0.7-5.8 baso% (test code = baso%) 0.5 % 0.1-1.2 neut# (test code = neut#) 3.7 x10*3/?L 1.6-6.1 lymph# (test code = lymph#) 1.0 x10*3/?L 1.2-3.7 L mon# (test code = mon#) 0.5 x10*3/?L 0.2-0.9 eos# (test code = eos#) 0.25 x10*3/?L 0.04-0.36 baso# (test code = baso#) 0.03 x10*3/?L 0.01-0.08 [facility] - Serum or Plasma 2018-07-26 00:00:00* Test Item Value Reference Range Interpretation Comments ALT (test code = ALT) 12 U/L 0-55 AST (test code = AST) 19 U/L 5-34 BUN (test code = BUN) 14.0 mg/dL 9.8-25.0 alk phos (test code = alk phos) 77 unit/L 40-150 glucose (test code = glucose) 92 mg/dL 70-99 albumin (test code = albumin) 3.9 g/dL 3.4-5.1 creatinine (test code = creatinine) 0.78 mg/dL 0.57-1.11 eGFR non- (test code = eGFR non-) > 60 total bilirubin (test code = total bilirubin) 0.9 mg/dL 0.2-1.2 eGFR - (test code = eGFR - ) >60 sodium (test code = sodium) 141 mEq/L 135-145 potassium (test code = potassium) 3.9 mEq/L 3.5-5.1 chloride (test code = chloride) 103 mmol/L 98-110 total protein (test code = total protein) 6.9 g/dL 6.1-8.2 calcium (test code = calcium) 9.8 mg/dL 8.6-10.4 CO2 (test code = CO2) 30.2 mmol/L 20.0-32.0 anion gap (test code = anion gap) 8 calc [facility] - Serum or [id number] 00:00:00* Test Item Value Reference Range Interpretation Comments HDL (test code = HDL) 58 mg/dL 50-0 triglyceride (test code = triglyceride) 55 mg/dL 0-150 VLDL (calculated) (test code = VLDL (calculated)) 11 mg/dL cholesterol/HDL ratio (test code = cholesterol/HDL ratio) 2.8 mg/dL non-HDL cholesterol (calculated) (test code = non-HDL cholesterol (calculated)) 104 mg/dL 0-160 cholesterol (test code = cholesterol) 162 mg/dL 0-200 Cholesterol in LDL [Mass/volume] in Serum or Plasma (t est code = 2089-1) 93 mg/dL 0-130 [facility] MAMM BILATERAL MICHI CAD [id number] 15:50:55 - SCR MAMM BILATERAL MICHI CAD DIGITALBILATERAL DIGITAL SCREENING MAMMOGRAM 3D/2D WITH CAD: 01/26/2018CLINICAL: Asymptomatic. Digital breast tomosynthesis was p erformed in addition to routine CC and MLO views. Current mammographic images w ere evaluated by either a [employer] M-Vu or a [employer] ImageChecker CAD (computer ai ded detection system). Comparison is made to exams dated 11/25/2016 mammogram, 02/20/2015 mammogram, and 04/14/2013 mammogram - [facility]. The re are scattered fibroglandular tissues in both breasts. There are benign calci fications in both breasts. No suspicious mass, architectural distortion, malign ant type calcification, or lymph node abnormality detected. Breast architecture is stable compared to prior exams.IMPRESSION: BENIGNThere is no mammographic ev idence of malignancy. Resume annual screening mammography in one year. Carlos Eduardo Walker M.D. ss/penrad:01/26/2018 15:50:55 City Director: Marie Bhatia FW, [facility]FWletter sent: BIRADS 1-2 Normal Mammogram BI-RADS: 2 Benign
--- OUTSIDE RECORDS SUMMARY | 2019-12-28 18:16 | XMS REPORT | Continuity of Care Document ---
Author Author [facility] t Organization [facility] Address [address] [place] [address] Phone Unavailable Care Team Providers Care [employer] Teacher Name Role Phone LOIS BANUELOS Attphys Unavailable LOIS BANUELOS Admphys Unavailable Problems Condition Name Condition Details Condition Category Status Onset Date Resolution Date Last Treatment Date Treating Clinician Comments Source Hypothyroidism Hypothyroidism Problem Active [place] Hyperlipidemia Hyperlipidemia Problem Active [place] Hypertensive disorder Hypertensive Disorder Problem Active [place] Allergies, Adverse Reactions, Alerts Allergy Name Allergy Type Status Severity Reaction(s) Onset Date Inacti ve Date Treating Clinician Comments Source Levaquin Allergy to substance Active [place] Social History Smoking Status Start Date Stop Date Source Never Smoker [facility] ractice Medications Ordered Medication Name Filled Medication [...] oral route as needed for 30 days. [place] lisinopril 10 mg-hydrochlorothiazide 12. 5 mg tablet Take 1 tablet(s) every day by oral route. lisinopril 10 mg-hydrochlorothiazide 12. 5 mg tablet Take 1 tablet(s) every day by oral route. No lisinopril 10 mg- hydrochlorothiazide 12.5 mg tablet Take 1 tablet(s) every day by oral route. [place] lorazepam 1 mg tablet Take 1 tablet every day by oral route as needed. lorazepam 1 mg tablet Take 1 tablet every day by oral route as needed. No lorazepam 1 mg tablet Take 1 tablet every day by oral route as needed. [place] simvastatin 40 mg tablet TAKE 1 TABLET DAILY simvastat in 40 mg tablet TAKE 1 TABLET DAILY No simvastatin 40 mg tablet TAKE 1 TABLET DAILY [facility] Synthroid 50 mcg tablet TAKE 1 TABLET BY MOUTH EVERY DAY Synthroid 50 mcg tablet TAKE 1 TABLET BY MOUTH EVERY DAY No Synthroid 50 mcg tablet TAKE 1 TABLET BY MOUTH EVERY DAY [facility] Vital Signs Vital Name Observation Time Observation Value Comments Source BP Diastolic 2019-10-09 00:00:00 71 mm[Hg] [facility] Height 2019-10-09 00:00:00 60.25 [in_i] [facility] BMI (Body Mass Index) 2019-10-09 00:00:00 28.5 kg/m2 [facility] BP Systolic 2019-10-09 00:00:00 153 mm[Hg] [facility] Body Weight 2019-10-09 00:00:00 147.4 [lb_av] [facility] Height 2019-09-22 00:00:00 60.25 [in_i] [facility] Height 2019-09-13 00:00:00 60.25 [in_i] [facility] BP Diastolic 2019-09-07 00:00:00 90 mm[Hg] [facility] Height 2019-09-07 00:00:00 60.25 [in_i] [facility] BMI (Body Mass Index) 2019-09-07 00:00:00 29.6 kg/m2 [facility] BP Systolic 2019-09-07 00:00:00 144 mm[Hg] [facility] Body Weight 2019-09-07 00:00:00 153 [lb_av] [facility] BP Diastolic 2019-01-02 00:00:00 101 mm[Hg] [facility] Height 2019-01-02 00:00:00 60.25 [in_i] [facility] BMI (Body Mass Index) 2019-01-02 00:00:00 29.7 kg/m2 [facility] BP Systolic 2019-01-02 00:00:00 141 mm[Hg] [facility] Body Weight 2019-01-02 00:00:00 153.4 [lb_av] [facility] BP Diastolic 2018-07-28 00:00:00 70 mm[Hg] [facility] Height 2018-07-28 00:00:00 60.25 [in_i] [facility] BMI (Body Mass Index) 2018-07-28 00:00:00 29 kg/m2 [facility] BP Systolic 2018-07-28 00:00:00 128 mm[Hg] [place] Body Weight 2018-07-28 00:00:00 149.8 [lb_av] [place] [place] Procedures Procedure Date / Time Performed Performing Clinician [facility] e Appendectomy 1961-02-22 00:00:00 [facility] Encounters Start Date/Time End Date/Time Encounter Type [facility] ID Source 2019-10-09 00:00:00 2019-10-09 00:00:00 Jessica Mena MD: [address], [address], [place] [address], Ph. [facility] ([facility]) [id number] [facility] e 2019-09-22 00:00:00 2019-09-22 00:00:00 Feroz Shen MD: [address], [address], [place] [address], Ph. [facility] ([facility]) [id number] [place] 2019-09-13 00:00:00 2019-09-13 00:00:00 Feroz Shen MD: [address], [address], [place] [address], Ph. [facility] ([facility]) [id number] [place] 2019-09-07 00:00:00 2019-09-07 00:00:00 Pantera Underwood DO: [address], [address], [place] [address], Ph. [facility] ([facility]) [id number] [place] 2019-03-01 00:00:00 2019-03-01 00:00:00 Ary Woods MD: [id number] [place] [address], Ph. [facility] [id number] [place] 2019-01-02 00:00:00 2019-01-02 00:00:00 Feroz Shen MD: [id number] [place] [address], Ph. [facility] [id number] [place] 2018-07-28 00:00:00 2018-07-28 00:00:00 Feroz Shen MD: [address] [place] [address], Ph. [facility] [id number] [place] 2018-07-26 00:00:00 2018-07-26 00:00:00 Feroz Shen MD: [id number] [place] [address], Ph. [facility] [id number] [place] Results Test Description Test Time Test Comments Results Result Comments Source [facility] 2019-12-26 09:18:00 [facility] : 1955 Sex: F [place] [address] Patient Name: BREANNA MENDOZA MR #: [id number] : 1955 Age/Sex: 64/F Req #: [id number] Adm Physician: LOIS BANUELOS MD Ordered by: LOIS BANUELOS MD Report #: [id number] Location: MED/SURG2 Room/Bed: [facility] Procedure: [id number] IR/MIDLINE PLACEMENT Exam Date: Exam Time: REPORT STATUS: Signed OR Fluoroscopy: IMPRESSION: Fluoroscopy service provided in the OR. Interpretation not requested. Signed by: Anthony Diaz MD on 12/26/2019 9:18 AM Dictated By: ANTHONY DIAZ MD 7 Transcribed By: BAN on 12/26/19917 COPY TO: LOIS BANUELOS MD CT ABDOMEN/PELVIS W 2019-12-22 20:14:00 [facility] : 1955 Sex: F [place] [address] Patient Name: BREANNA MENDOZA MR #: [id number] : 1955 Age/Sex: 64/F Req #: [id number] Adm Physician: Ordered by: ELISSA SEBASTIAN MD Report #: [id number] Location: Room/Bed: Procedure: [id number] CT/CT ABDOMEN/PELVIS W Exam Date: 12/22/19 Exam [...] (test code = baso#) 0.03 x10*3/?L 0.01-0.08 [facility] Auto Differential panel - [id number] 08:27:00 * Test Item Value Reference Range [...] (test code = baso#) 0.03 x10*3/?L 0.01-0.[address] [place] [facility] [facility] 1999 panel - Serum or Plasma [...] (test code = anion gap) 9 calc [place]id 1995 panel - Serum or [id number] 17:50:00* Test Item Value Reference Range Interpretation [...] est code = 2089-1) 93 mg/dL <130 [place]yrotropin [Units/volume] in Serum or [id number] 17:50:00* Test Item Value Reference Range Interpretation Comments TSH (test code = TSH) 2.500 uIU/mL 0.350-4.[address] [place] [facility] metabolic 2000 panel - Serum or Plasma [...] (test code = anion gap) 9 calc [place]id 1996 panel - Serum or [id number] 17:50:00* Test Item Value Reference Range Interpretation [...] est code = 2089-1) 93 mg/dL <[address] [place] [facility] [place] [facility] [facility]yrot[place]in [Units/volume] in Serum or [id number] 17:50:00* Test Item Value Reference Range Interpretation Comments TSH (test code = TSH) 2.500 uIU/mL 0.350-4.940 [facility] [id number] 10:45:11 - SCR MAMM BILATERAL MICHI CAD DIGITALBILATERAL DIGITAL SCREENING MAMMOGRAM 3D/2D WITH CAD: 02/13/2019CLINICAL: Asymptomatic. Digital breast tomosynthesis was performed in addition to routine CC and MLO views. Current mammographic images were evaluated by either a [employer] M-Vu or a [employer] ImageChecker CAD (computer a ided detection system). Comparison is made to exams dated 01/26/2018 mammogram, 11/25/2016 mammogram, 02/20/2015 mammogram, 04/14/2013 mammogram, and 04/11/2012 m ammogram - [facility] The tissue of both breasts is heterogene ously dense. This may lower the sensitivity of mammography. There are benign ca lcifications in both breasts. No suspicious mass, architectural distortion, mal ignant type calcification, or lymph node abnormality detected. Breast senior web architect ure is stable compared to prior exams.IMPRESSION: BENIGNThere is no mammographic evidence of malignancy. Resume annual screening mammography in one year. Vito Talley M.D. ar/:02/16/2019 10:45:11 copy to: Cheryl arroyo MD, ph: [phone], fax: [phone] Technologist: Lorna [facility]-FWletter sent: BIRADS 1-2 Normal Mammogram BI-RADS: 2 Be nignCBC W Auto Differential panel - [id number] 00:00:00* Test Item Value Reference Range Interpretation [...] (test code = baso#) 0.03 x10*3/?L 0.01-0.08 [place] [facility] [place] [facility] [facility] 1999 panel - Serum or Plasma [...] (test code = anion gap) 8 calc [facility] panel - Serum or [id number] 00:00:00* Test Item Value Reference Range Interpretation [...] est code = 2089-1) 93 mg/dL 0-130 [facility] MAMM BILATERAL MICHI CAD [id number] 15:50:55 - SCR MAMM BILATERAL MICHI CAD DIGITALBILATERAL DIGITAL SCREENING MAMMOGRAM 3D/2D WITH CAD: 01/26/2018CLINICAL: Asymptomatic. Digital breast tomosynthesis was p erformed in addition to routine CC and MLO views. Current mammographic images w ere evaluated by either a [employer] M-Vu or a [employer] ImageChecker CAD (computer ai ded detection system). Comparison is made to exams dated 11/25/2016 mammogram, 02/20/2015 mammogram, and 04/14/2013 mammogram - [facility]. The re are scattered fibroglandular tissues in both breasts. There are benign calci fications in both breasts. No suspicious mass, architectural distortion, malign ant type calcification, or lymph node abnormality detected. Breast architecture is stable compared to prior exams.IMPRESSION: BENIGNThere is no mammographic ev idence of malignancy. Resume annual screening mammography in one year. Carlos Eduardo Walker M.D. ss/penrad:01/26/2018 15:50:55 [employer] Operator: Marie Bhatia FW, [facility]FWletter sent: BIRADS 1-2 Normal Mammogram BI-RADS: 2 Benign
== END 2019-12-27 14:15 | disposition home or self-care (01) | DRG 394 ==
LOC: ER 20:01 → ERHOLD 21:34 → MED/SURG2 23:03
PROVIDERS: ADMIT Internal Medicine; ATTEND Internal Medicine
PROC: 02HV33Z Insertion of Infusion Device into Superior Vena Cava, Percutaneous Approach (ICD-10-PCS; principal; 2019-12-22)
PROC: 0DBM8ZX Excision of Descending Colon, Via Natural or Artificial Opening Endoscopic, Diagnostic (ICD-10-PCS; 2019-12-22)
PROC: 0DBP8ZX Excision of Rectum, Via Natural or Artificial Opening Endoscopic, Diagnostic (ICD-10-PCS; 2019-12-22)
DX: K55.9 Vascular disorder of intestine, unspecified (principal); K51.20 Ulcerative (chronic) proctitis without complications; K56.41 Fecal impaction; E87.6 Hypokalemia; K64.8 Other hemorrhoids; I10 Essential (primary) hypertension; E78.5 Hyperlipidemia, unspecified; E03.9 Hypothyroidism, unspecified; Z11.59 Encounter for screening for other viral diseases
CPT/HCPCS: 36415; 45380; 74177; 80048; 80053; 80061; 81001; 82150; 82550; 82553; 83036; 83630; 83690; 83735; 83993; 84100; 84132; 84484; 85025; 87045; 87177; 87328; 87493; 88305; 93005; 99251; 99284; J1170; J2001; J2250; J2270; J2405; J2765; J3010; J3480; J7030; Q9967

== ENCOUNTER → 2023-07-02 | Day surgery (SDC) | payer MEDICARE ==
[2023-06-28 10:48] LABS: BASOPHILS # (AUTO) 0.1 (0.0-0.1); BASOPHILS % 1.1 % (0.0-1.0); EOSINOPHILS # (AUTO) 0.5 (0.0-0.4); EOSINOPHILS % 9.3 % (0.0-6.0); HEMATOCRIT 39.6 % (34.2-44.1); HEMOGLOBIN 12.8 g/dL (12.0-16.0); LYMPHOCYTES # (AUTO) 1.3 (1.0-3.2); LYMPHOCYTES % 23.8 % (18.0-39.1); MEAN CORPUSCULAR HEMOGLOBIN 30.7 pg (28-32); MEAN CORPUSCULAR HGB CONC 32.3 g/dL (31-35); MONOCYTES # (AUTO) 0.4 (0.2-0.8); MONOCYTES % 6.7 % (4.4-11.3); NEUTROPHILS # (AUTO) 3.3 (2.1-6.9); NEUTROPHILS % 58.9 % (38.7-80.0); PLATELET COUNT 229 x10e3/uL (140-360); RED BLOOD COUNT 4.17 x10e6/uL (3.6-5.1); RED CELL DISTRIBUTION WIDTH 14.8 % (11.7-14.4); WHITE BLOOD COUNT 5.51 x10e3/uL (4.8-10.8)
[2023-06-28 11:12] LABS: ANION GAP 13.9 mmol/L (8-16); CALCIUM 10.1 mg/dL (8.4-10.2); CREATININE, SERUM 0.8 mg/dL (0.57-1.11); POTASSIUM 3.9 mmol/L (3.5-5.1)
[~2023-07-02] MED LIST changes: +AMLODIPINE BESYL5 MG PO; +ATIVAN0.5 MG PO; +CEFUROXIME250 MG PO; +CEPHALEXIN500 MG PO; +DEXAMETHASONE SOD PHOS INJ 4 MG/ML SDV ONE; +EPHEDRINE SULFATE INJ 50 MG/ML VIAL ONE; +FAMOTIDINE 20 MG/2 ML VIAL IV ONE; +FENTANYL CITRATE/PF 100MCG/2 ML INJ ONE; +FLAGYL250 MG PO; +GLYCOPYRROLATE INJ 0.2 MG/ML VIAL ONE; +HYDROCHLOROTH12.5 MG PO; +IOPAMIDOL 610MG/1ML 300 MG/ML VIAL IV ONE; +LIDOCAINE HCL 2% LOCAL INJ 5 ML SDV VIAL INJ ONE; +LISINOPRIL-HCT1 EACH PO; +LISINOPRIL10 MG PO; +MIDAZOLAM HCL 2 MG/2 ML VIAL ONE; +ONDANSETRON HCL INJ 2MG/ML 2ML 2 MG/ML VIAL ONE; +PEPCID20 MG PO; +PROPOFOL IV EMULSION 10 MG/ML 20 ML VIAL ONE; +PYRIDIUM200 MG PO; +SEVOFLURANE INHAL SOLN 250 ML PEN BTL ONE; +SIMVASTATIN40 MG PO; +VESICARE5 MG PO
[2023-07-02] MEDS: CEFTRIAXONE 1 GM VIAL ONE (06:40)
[2023-07-02] MEDS: LACTATED RINGER'S 1,000 ML ONE (06:40)
[2023-07-02] MEDS: GENTAMICIN 80MG/NS 100 ML 200 ML IV ONE (06:41)
[2023-07-02 09:23] VITALS: TEMP 99.1
[2023-07-02] MEDS: PHENAZOPYRIDINE HCL 100 MG TAB ONE (09:35)
[2023-07-02 10:25] VITALS: BP 149/81; PULSE 89; RESP 15; O2SAT 97
== END | disposition home or self-care (01) ==
LOC: OR 05:45
PROVIDERS: ATTEND Urology
DX: N13.1 Hydronephrosis with ureteral stricture, not elsewhere classified (principal); Z43.6 Encounter for attention to other artificial openings of urinary tract; N95.2 Postmenopausal atrophic vaginitis; N81.6 Rectocele; N39.46 Mixed incontinence; N39.0 Urinary tract infection, site not specified; R80.9 Proteinuria, unspecified; I10 Essential (primary) hypertension; E78.5 Hyperlipidemia, unspecified; E03.9 Hypothyroidism, unspecified; Z88.1 Allergy status to other antibiotic agents; Z01.810 Encounter for preprocedural cardiovascular examination; Z01.812 Encounter for preprocedural laboratory examination; Z01.818 Encounter for other preprocedural examination; Z79.899 Other long term (current) drug therapy
CPT/HCPCS: 36415; 50389; 52332; 52351; 74018; 74420; 80048; 85025; 87086; 93005; C1769; C2617; J0696; J1100; J1580; J2001; J2250; J2405; J2704; J3010; J7121; Q9967

== ENCOUNTER 2023-07-03 16:16 | Emergency (ER) | payer MEDICARE ==
[~2023-07-03] VITALS: Ht 307.3 cm; Wt 68.9 kg
[~2023-07-03 16:16] MED LIST changes: -DEXAMETHASONE SOD PHOS INJ 4 MG/ML SDV ONE; -EPHEDRINE SULFATE INJ 50 MG/ML VIAL ONE; -FAMOTIDINE 20 MG/2 ML VIAL IV ONE; -FENTANYL CITRATE/PF 100MCG/2 ML INJ ONE; -GLYCOPYRROLATE INJ 0.2 MG/ML VIAL ONE; -IOPAMIDOL 610MG/1ML 300 MG/ML VIAL IV ONE; -LIDOCAINE HCL 2% LOCAL INJ 5 ML SDV VIAL INJ ONE; -MIDAZOLAM HCL 2 MG/2 ML VIAL ONE; -ONDANSETRON HCL INJ 2MG/ML 2ML 2 MG/ML VIAL ONE; -PROPOFOL IV EMULSION 10 MG/ML 20 ML VIAL ONE; -PYRIDIUM200 MG PO; -SEVOFLURANE INHAL SOLN 250 ML PEN BTL ONE; -VESICARE5 MG PO
[2023-07-03] MEDS ORDERED: PYRIDIUM200 MG PO (18:36)
[2023-07-03] MEDS ORDERED: VESICARE5 MG PO (18:36)
[2023-07-03] MEDS: PHENAZOPYRIDINE HCL 100 MG TAB PO ONE (18:50)
[2023-07-03 19:00] VITALS: O2SAT 100
== END 2023-07-03 19:12 | disposition home or self-care (01) ==
LOC: ER 16:25
DX: Z43.6 Encounter for attention to other artificial openings of urinary tract (principal); I10 Essential (primary) hypertension; E78.5 Hyperlipidemia, unspecified; E03.9 Hypothyroidism, unspecified
CPT/HCPCS: 51700; 74018; 99282

== ENCOUNTER → 2023-08-23 | Outpatient (REF) | payer MEDICARE ==
[~2023-08-23] MED LIST changes: +FUROSEMIDE INJ 10 MG/ML 4 ML VIAL ONE; +PYRIDIUM200 MG PO; +VESICARE5 MG PO
== END ==
LOC: NM 09:05
PROVIDERS: ATTEND Urology
DX: N13.30 Unspecified hydronephrosis (principal)
CPT/HCPCS: 78708; A9562; J1940